=== PATIENT | female | born 1935 | race Caucasian/White ===

== ENCOUNTER 2017-05-30 16:45 | Emergency (ER) | payer BC ==
[~2017-05-30] VITALS: Ht 149.9 cm; Wt 59.9 kg
[2017-05-30 16:45] VITALS: BP_SYST 140
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
[2017-05-30 17:37] LABS: BASOPHILS # (AUTO) 0.1 K/uL (0.0-0.2); BASOPHILS % (AUTO) 0.9 % (0.0-2.0); EOSINOPHILS # (AUTO) 0.2 K/uL (0.0-0.4); EOSINOPHILS % (AUTO) 1.6 % (0.0-4.0); HEMATOCRIT 44.7 % (36-48); HEMOGLOBIN 14.8 g/dL (12.0-16.0); LYMPHOCYTES # (AUTO) 2.1 K/uL (1.0-5.5); LYMPHOCYTES % (AUTO) 21.5 % (20.5-51.5); MEAN CORPUSCULAR HEMOGLOBIN 32 pg (27-31); MEAN CORPUSCULAR HGB CONC 33 % (32-36); MEAN CORPUSCULAR VOLUME 95 fL (79.0-98.0); MONOCYTES # (AUTO) 0.6 K/uL (0.0-1.0); MONOCYTES % (AUTO) 6.3 % (1.7-9.3); NEUTROPHILS # (AUTO) 6.8 K/uL (1.8-7.7); NEUTROPHILS % (AUTO) 69.7 % (40.0-70.0); PLATELET COUNT (AUTO) 214 K/uL (130-430); RED BLOOD CELL COUNT(AUTO) 4.69 MIL/uL (4.2-6.2); RED CELL DISTRIBUTION WIDTH 12.7 % (9.0-15.0); WHITE BLOOD COUNT (AUTO) 9.8 K/uL (4.8-10.8)
--- NOTE | 2017-05-30 17:52 | NUR ---
Radiology at bedside.
[2017-05-30 18:13] LABS: ALANINE AMINOTRANSFERASE 23 U/L (12-78); ALBUMIN 3.5 g/dL (3.4-4.8); ANION GAP 9 (5-15); ASPARTATE AMINOTRANSFERASE 22 U/L (10-37); CALCIUM 9.5 mg/dL (8.4-11.0); CHLORIDE 104 mmol/L (98-107); CREATININE 0.68 mg/dL (0.55-1.30); GLUCOSE 122 mg/dL (70-99); LIPASE 167 U/L (73-393); POTASSIUM 3.5 mmol/L (3.5-5.1); SODIUM SERUM 139 mmol/L (136-145); TOTAL BILIRUBIN 0.5 mg/dL (0.0-1.0)
--- NOTE | 2017-05-30 18:35 | NUR ---
ER at bedside examining patient.
[2017-05-30 18:36] LABS: UREA NITROGEN, BLOOD 16 mg/dL (8-21)
--- NOTE | 2017-05-30 18:43 | NUR ---
Pt is resting in bed comfortably with no noted distress or discomfort. Pt asked for food and Dr Dumont states it was ok to feed.
[2017-05-30 19:06] VITALS: BP_SYST 138
--- NOTE | 2017-05-30 19:07 | NUR ---
Patient given written and verbal discharge instructions and verbalizes understanding. ER MD Dumont discussed with patient the results and treatment provided. Patient in stable condition. ID arm band removed.Rx of motrin given. Patient educated on pain management and to follow up with PMD. Pain Scale 0. Opportunity for questions provided and answered.
== END 2017-05-30 19:07 | disposition home or self-care (01) ==
LOC: SED 16:45
DX: S20.20XA Contusion of thorax, unspecified, initial encounter (principal); I48.91 Unspecified atrial fibrillation; I10 Essential (primary) hypertension; Z90.710 Acquired absence of both cervix and uterus; V89.2XXA Person injured in unspecified motor-vehicle accident, traffic, initial encounter; Y93.89 Activity, other specified; Y92.89 Other specified places as the place of occurrence of the external cause; Y99.8 Other external cause status
CPT/HCPCS: 36415; 71010; 80053; 83690-TC; 83880; 84484; 85025; 93005; 99285

== ENCOUNTER 2017-07-09 13:38 | Outpatient (CLI) | payer BC | END 2017-07-09 21:25 | disposition home or self-care (01) | LOC: SUS 13:38 | PROVIDERS: ATTEND Family Medicine | DX: Z12.31 Encounter for screening mammogram for malignant neoplasm of breast (principal); N26.1 Atrophy of kidney (terminal) | CPT/HCPCS: 76700; G0202 ==

== ENCOUNTER 2022-01-11 10:36 | Emergency (ER) | payer BC ==
[~2022-01-11] VITALS: Ht 154.9 cm; Wt 57.6 kg
[2022-01-11 10:36] VITALS: BP_SYST 101
[~2022-01-11 10:36] MED LIST: ALEN10TA25 PO; DOCU250C14 PO; HYDR-3607 PO; LABE200T6 PO; LEVO88TA5 PO; LORA-258 PO; METO200T49 PO; NOR10 PO; RIVA20TA PO
[2022-01-11] MEDS ORDERED: HYDROcodone/ACETAMIN 5-325 MG TAB (NORCO/ VICODIN) PO ONE (11:30)
[2022-01-12 00:05] VITALS: BP_SYST 111
== END 2022-01-11 23:50 | disposition home or self-care (01) ==
LOC: SED 10:36
DX: S42.291D Other displaced fracture of upper end of right humerus, subsequent encounter for fracture with routine healing (principal); I10 Essential (primary) hypertension; Z79.01 Long term (current) use of anticoagulants; X58.XXXA Exposure to other specified factors, initial encounter; Y93.89 Activity, other specified; Y92.89 Other specified places as the place of occurrence of the external cause; Y99.8 Other external cause status
CPT/HCPCS: 73030; 99283